=== PATIENT | female | born 1970 | race Caucasian/White ===

== ENCOUNTER 2018-11-18 17:47 | Outpatient (REF) | payer OTHER, SELFPAY ==
[2018-11-18 22:07] LABS: Anion Gap 9.3 mmol/L (3-11); BUN 12 mg/dL (7-18); CO2 27.7 mmol/L (21.0-32.0); CREATININE 0.58 mg/dL (0.55-1.02); Calcium 9.7 mg/dL (8.5-10.1); Chloride 103 mmol/L (98-107); Cholesterol 162 mg/dL (50-200); Glucose 98 mg/dL (70-100); HDL Cholesterol 54 mg/dL (40-60); LDL CHOLESTEROL 90 mg/dL (<100); Potassium 4.4 mmol/L (3.5-5.1); Sodium 140 mmol/L (136-145); Triglyceride 113 mg/dL (30-150)
== END 2018-11-18 18:07 ==
LOC: NCHCN 17:47
PROVIDERS: PCP Nurse Practitioner Family; Visit Provider Registered Nurse
DX: I10 Essential (primary) hypertension (principal); E11.9 Type 2 diabetes mellitus without complications; E66.9 Obesity, unspecified; Z00.00 Encounter for general adult medical examination without abnormal findings
CPT/HCPCS: 80048; 80061; 83721

== ENCOUNTER 2019-10-14 17:20 | Outpatient (REF) | payer OTHER, SELFPAY ==
[2019-10-14 21:49] LABS: Anion Gap 9.7 mmol/L (3-11); BUN 13 mg/dL (7-18); CO2 27.3 mmol/L (21.0-32.0); CREATININE 0.65 mg/dL (0.55-1.02); Calcium 9.1 mg/dL (8.5-10.1); Chloride 104 mmol/L (98-107); Glucose 90 mg/dL (74-106); Sodium 141 mmol/L (136-145)
[2019-10-14 21:58] LABS: COMMENT (LAB VIEW ONLY) 19.63 mg/dL; Microalb ug/mg Crea 30.1 ug/mg Cr
[2019-10-16 10:07] LABS: CEA <0.5 ng/mL (See Note)
== END 2019-10-14 17:40 ==
LOC: NCHCN 17:20
PROVIDERS: PCP Nurse Practitioner Family; Visit Provider Registered Nurse
DX: E11.9 Type 2 diabetes mellitus without complications (principal); I10 Essential (primary) hypertension; C18.9 Malignant neoplasm of colon, unspecified
CPT/HCPCS: 80048; 82043; 82378; 82570

== ENCOUNTER → 2020-09-01 18:12 | Outpatient (REF) | payer OTHER, SELFPAY ==
[2020-09-01 14:22] LABS: BUN 17 mg/dL (7-18); CREATININE 0.64 mg/dL (0.55-1.02); Calcium 9.2 mg/dL (8.5-10.1); Chloride 103 mmol/L (98-107); Glucose 121 mg/dL (74-106); Potassium 4.5 mmol/L (3.5-5.1); Sodium 140 mmol/L (136-145)
== END ==
LOC: NCHCN 18:12
PROVIDERS: PCP Nurse Practitioner Family; Visit Provider Registered Nurse
DX: I10 Essential (primary) hypertension (principal); E11.9 Type 2 diabetes mellitus without complications
CPT/HCPCS: 80048

== ENCOUNTER 2021-10-19 17:21 | Outpatient (REF) | payer OTHER, SELFPAY ==
[2021-10-19 14:56] LABS: Anion Gap 7.1 mmol/L (3-11); BUN 25 mg/dL (7-18); CO2 27.9 mmol/L (21.0-32.0); CREATININE 0.7 mg/dL (0.55-1.02); Calcium 9.5 mg/dL (8.5-10.1); Calculated LDL 107 mg/dL (<100); Chloride 105 mmol/L (98-107); Cholesterol 181 mg/dL (<200); Glucose 126 mg/dL (74-106); HDL Cholesterol 61 mg/dL (40-60); Potassium 4.5 mmol/L (3.5-5.1); Sodium 140 mmol/L (136-145); Triglyceride 65 mg/dL (<150)
[2021-10-19 15:27] LABS: COMMENT (LAB VIEW ONLY) 165.56 mg/dL; Microalb ug/mg Crea 9.4 ug/mg Cr
== END 2021-10-19 17:22 | disposition home or self-care (01) ==
LOC: NCHCN 17:21
PROVIDERS: PCP Nurse Practitioner Family; Visit Provider Registered Nurse
DX: I10 Essential (primary) hypertension (principal); Z13.220 Encounter for screening for lipoid disorders; E11.9 Type 2 diabetes mellitus without complications
CPT/HCPCS: 80048; 80061; 82043; 82570

== ENCOUNTER 2023-01-09 16:00 | Outpatient (REF) | payer BC, SELFPAY ==
[2023-01-09 22:17] LABS: COMMENT (LAB VIEW ONLY) < 13.00 mg/dL
[2023-01-09 22:18] LABS: ALT 26 U/L (14-59); AST 20 U/L (15-37); Alkaline Phosphatase 108 U/L (46-116); Anion Gap 7.7 mmol/L (3-11); BUN 17 mg/dL (7-18); Bilirubin, Total 0.2 mg/dL (0.2-1.0); CO2 27.3 mmol/L (21.0-32.0); CREATININE 0.6 mg/dL (0.55-1.02); Calcium 9.6 mg/dL (8.5-10.1); Chloride 102 mmol/L (98-107); Estimated GFR 107.93 (mL/min/1.73m2); Glucose 125 mg/dL (74-106); Potassium 3.9 mmol/L (3.5-5.1); Sodium 137 mmol/L (136-145); TSH (W/Ref FT4) 1.05 uIU/mL (0.36-3.74); Total Protein 7.9 g/dL (6.4-8.2)
[2023-01-09 22:22] LABS: Hemoglobin A1C 6.5 % (<5.7)
== END 2023-01-09 16:01 | disposition home or self-care (01) ==
LOC: NCHCN 16:00
PROVIDERS: PCP Nurse Practitioner Family; Visit Provider Registered Nurse
DX: E11.9 Type 2 diabetes mellitus without complications (principal); I10 Essential (primary) hypertension; E66.8 Other obesity; Z13.29 Encounter for screening for other suspected endocrine disorder
CPT/HCPCS: 80053; 82043; 82570; 83036; 84443

== ENCOUNTER 2024-05-14 16:17 | Outpatient (REF) | payer BC, SELFPAY ==
[2024-05-14 22:55] LABS: COMMENT (LAB VIEW ONLY) 124.62 mg/dL; Microalb ug/mg Crea 7.6 ug/mg Cr
== END 2024-05-14 16:18 | disposition home or self-care (01) ==
LOC: NCHCN 16:17
PROVIDERS: PCP Nurse Practitioner Family; Visit Provider Family Medicine
DX: E11.9 Type 2 diabetes mellitus without complications (principal)
CPT/HCPCS: 82043; 82570

== ENCOUNTER 2025-02-11 20:51 | Outpatient (REF) | payer OTHER, SELFPAY | END 2025-02-11 20:52 | disposition home or self-care (01) | LOC: NCHCN 20:51 | PROVIDERS: Visit Provider Family Medicine | DX: R30.0 Dysuria (principal); R82.89 Other abnormal findings on cytological and histological examination of urine | CPT/HCPCS: 87077; 87086; 87186 ==